=== PATIENT | female | born 1930 | race Caucasian/White ===

== ENCOUNTER 2017-02-28 21:27 | Emergency (ER) | payer MEDICARE, OTHER ==
[~2017-02-28] VITALS: Ht 167.6 cm; Wt 81.8 kg
[2017-02-28 21:42] VITALS: Ht 167.6 cm; Wt 81.8 kg
--- NOTE | 2017-02-28 22:05 | ERD ---
ER Documentation Chief Complaint Date/Time DATE: 02/28/17 TIME: 21:52 Chief Complaint cardiac arrest from [facility] at the [facility] This 82-year-old female is brought in cardiac arrest by rescue 88. She was found pulseless at her assisted living facility, [facility] the [place], she had a large abrasion across the front of her forehead when she was found down. Initial rhythm was asystole. Paramedics gave epinephrine initiated CPR intubated the patient established an EJ line. They believe she had return of spontaneous circulation briefly but the patient quickly lost pulses and was in asystole. There were unable to regain pulses and had continuous rhythms of asystole. During her brief period of return of spontaneous circulation she did have one EKG which read STEMI in which she had ST elevations in V4 and V5. CPR was in progress on arrival. The paramedics were unable to provide much medical history because the lithographed plate inspector at the assisted living facility was not able to provide much information. ROS Unobtainable Allergies Allergies: Coded Allergies: Unknown: Unable to obtain (Unverified , 02/28/17) Physical Exam Vitals Vital Signs Date Time Temp Pulse Resp B/P Pulse Ox O2 Delivery O2 Flow Rate FiO2 02/28/17 21:42 97.5 0 0 125/86 94 Physical Exam Const: [] Completely unresponsive Head: Large 9 x 3 cm abrasion across forehead with wet red blood but no active bleeding. Eyes: Normal Conjunctiva, pupils 3 mm and nonreactive bilaterally. ENT: Normal External Ears, Nose and Mouth. ET tube in place. Neck: Full range of motion..~ No meningismus. Resp: Bilateral breath sounds with bag mask ventilation, excellent compliance Cardio: Pulseless, no heart sounds Abd: Soft, , non distended. Skin: Pale, warm at the core, cool and extremities Ext: No cyanosis, or edema, pulseless Neur: Cardiac arrest, no corneal reflex Procedures/MDM CPR continued in the ER without interruption High-quality chest compressions were continued. Respiratory therapy was present and continued bag mask ventilation. patient was placed on 2 different monitors pacer pads in place. I/O line and AC line were immediately established. Patient already been given another dose of epinephrine through her EJ. Sodium bicarbonate, calcium chloride and dextrose were then given. Another epinephrine was given prior to pulse rhythm check which revealed a rhythm of asystole and pulseless. Several rounds of CPR were continued with multiple doses of epinephrine as well as another sodium bicarbonate. On infrequent but subsequent pulse checks patient had asystole each time. Performed a limited bedside cardiac ultrasound in which the patient had no cardiac motion whatsoever. Total downtime had been greater than 30 minutes when time of was called at 2147. Patient did have a significant appearing head abrasion. Possible the patient fell and hit her head because she had suffered a cardiac arrest or possibly a head injury came first. This will not be known at this time. Attempting to contact family. Limited cardiac bedside ultrasound: Third intercostal space mid left chest view revealed visualization of the entire circumference of the heart. There is absolutely no cardiac motion whatsoever during a 10 second study. Images were saved and printed Departure Diagnosis: Primary Impression: Cardiac arrest Additional Impression: Head injury Condition: Critical NATALIA SALGADO DO Feb 28, 2017 22:04
== END 2017-03-01 00:29 | disposition expired ==
LOC: E/R 21:27
DX: I46.9 Cardiac arrest, cause unspecified (principal); S00.81XA Abrasion of other part of head, initial encounter; W18.09XA Striking against other object with subsequent fall, initial encounter; Y92.9 Unspecified place or not applicable
CPT/HCPCS: 92950